=== PATIENT | male | born 1985 | race Caucasian/White ===

== ENCOUNTER 2020-01-06 20:22 | Emergency (ER) | payer MEDICAID ==
[~2020-01-06] VITALS: Ht 177.8 cm; Wt 92.4 kg
[~2020-01-06 20:22] MED LIST: IBUP-1985 PO; LISI40TA4 PO; METF-900 PO; METO25TA6 PO
[2020-01-06 20:31] VITALS: BP 165/10
[2020-01-06] MEDS ORDERED: AMOX-422 PO (21:02)
== END 2020-01-06 21:21 | disposition home or self-care (01) ==
LOC: ER 20:22
DX: K04.7 Periapical abscess without sinus (principal); I10 Essential (primary) hypertension; F12.90 Cannabis use, unspecified, uncomplicated; Z60.2 Problems related to living alone; Z79.2 Long term (current) use of antibiotics; Z79.899 Other long term (current) drug therapy
CPT/HCPCS: 99283